=== PATIENT | female | born 1945 | race Caucasian/White ===

== ENCOUNTER 2017-11-05 14:47 | Inpatient (IN) | payer OTHER, MEDICARE ==
[~2017-11-05] VITALS: Ht 142.2 cm; Wt 59.4 kg
[2017-11-05 15:30] VITALS: BP 128/66
--- NOTE | 2017-11-05 15:30 | NUR ---
RT PT CAME FOR J TUBE REPLACEMENT, TRACH'D SHILEY 4 INTACT. ORDERED SETTINGS AC 10 600 +5 40% JERICHO VENT SETTINGS PLUGGED IN RED OUTLET AMBU BAG ON BEDSIDE, PT SEEMS COMFORTABLE, WILL CONTINUE TO MONITOR
--- NOTE | 2017-11-05 15:30 | NUR ---
PT MILLY FROM [facility] FOR JTUBE MALFUNCTION. AT BS FOR EVAL. UNABLE TO FLUSH, NO RESIDUAL NOTED FROMN JTUBE. PT ON VENT/TRACH RT AT BS. VSS. SAFETY AND COMFORT MEASURES PROVIDED. WILL MONITOR.
--- NOTE | 2017-11-05 17:32 | NUR ---
CALLED [facility] FOR PANEL
--- NOTE | 2017-11-05 18:00 | NUR ---
CALLED NURSE SUP FOR TELE BED
[2017-11-05] MEDS ORDERED: Z GUARD REMEDY 2 OZ OINT TP PRN (18:30)
[2017-11-05] MEDS ORDERED: HYDROCODONE/APAP 5/325MG 1 EACH TABLET PO PRN (18:30)
[2017-11-05] MEDS ORDERED: MAG HYDROX/AL HYDROX/SIMETH 30 ML UDC PO PRN (18:30)
[2017-11-05] MEDS ORDERED: ACETAMINOPHEN 325 MG TABLET PO PRN (18:30)
[2017-11-05] MEDS ORDERED: MAGNESIUM HYDROXIDE 30 ML UDC PO PRN (18:30)
--- NOTE | 2017-11-05 18:30 | NUR ---
IV ACCESS STARTED. BLOOD DRAWN FOR LABS.
[2017-11-05] MEDS ORDERED: DILT30TA35 JT (18:31)
[2017-11-05] MEDS ORDERED: PANT40SU2 (18:31)
[2017-11-05] MEDS ORDERED: FERR220S2 JT (18:31)
[2017-11-05] MEDS ORDERED: POTA20PA4 JT (18:31)
[2017-11-05] MEDS ORDERED: FURO-145 JT (18:31)
[2017-11-05 18:39] LABS: BASOPHILS # (AUTO) 0.2 /CMM (0.0-0.2); BASOPHILS % (AUTO) 3.1 % (0.0-2.0); EOSINOPHILS # (AUTO) 0.3 /CMM (0.0-0.7); EOSINOPHILS % (AUTO) 3.8 % (0.0-6.0); HEMATOCRIT 23 % (33-45); HEMOGLOBIN 7.6 g/dL (11.5-14.8); LYMPHOCYTES # (AUTO) 1.2 /CMM (0.8-4.8); LYMPHOCYTES % (AUTO) 16.2 % (20.0-44.0); MEAN CORPUSCULAR HEMOGLOBIN 28 PG (26.0-33.0); MEAN CORPUSCULAR HGB CONC 33 g/dl (31.0-36.0); MEAN CORPUSCULAR VOLUME 86 fL (82-100); MONOCYTES # (AUTO) 0.4 /CMM (0.1-1.30); MONOCYTES % (AUTO) 5.1 % (2.0-12.0); NEUTROPHILS # (AUTO) 5.5 /CMM (1.8-8.9); NEUTROPHILS % (AUTO) 71.8 % (43.0-81.0); PLATELET COUNT (AUTO) 321 /CMM (150-450); RDW COEFFICIENT OF VARIATION 19.7 (11.5-15.0); RED BLOOD CELL COUNT(AUTO) 2.69 MIL/uL (4.0-5.2); WHITE BLOOD COUNT (AUTO) 7.6 K/uL (4.3-11.0)
[2017-11-05 18:47] LABS: CALCIUM, SERUM 8.7 mg/dL (8.5-10.1); CARBON DIOXIDE 26 mmol/L (21-32); CHLORIDE 103 mmol/L (98-107); CREATININE 0.4 mg/dL (0.6-1.3); GLUCOSE 91 mg/dL (74-106); MAGNESIUM 2.1 mg/dL (1.8-2.4); SODIUM SERUM 136 mmol/L (136-145); UREA NITROGEN, BLOOD 23 mg/dL (7-18)
[2017-11-05] MEDS ORDERED: AMIN887L JT (18:53)
[2017-11-05] MEDS ORDERED: ZINC220C6 JT (18:53)
[2017-11-05] MEDS ORDERED: DEXT15DR6 EACHEYE (18:53)
[2017-11-05] MEDS ORDERED: INSU100V28 SQ (18:53)
[2017-11-05] MEDS ORDERED: BLOO-668 SQ (18:53)
[2017-11-05] MEDS ORDERED: ACET325T53 JT ×2 (18:53)
[2017-11-05] MEDS ORDERED: AMIO200T2 JT (18:53)
[2017-11-05] MEDS ORDERED: HEPA50007 SQ (18:53)
[2017-11-05] MEDS ORDERED: ASCO500T9 JT (18:53)
[2017-11-05] MEDS ORDERED: DOCU50LI JT (18:53)
[2017-11-05] MEDS ORDERED: MULT-213 JT (18:53)
[2017-11-05] MEDS ORDERED: CRAN3875 JT (18:53)
[2017-11-05] MEDS ORDERED: ACET-73 JT (18:53)
--- NOTE | 2017-11-05 20:30 | NUR ---
RT RECEIVED PT TRACHED WITH NOTED VENT SETTINGS, CANTEEN MANAGER DONE AND TRACH IS SECURE. SX WITH MOD THK WHITE/CLEAR SECRETIONS. VENT ALARMS CHECKED AND AUDIBLE. VENT PLUGGED IN RED OUTLET. AMBU BAG NOTED HOB. NO RESP DISTRESS NOTED AT THIS TIME, WILL CONTINUE TO MONITOR T/O SHIFT
--- NOTE | 2017-11-05 20:38 | NUR ---
REPORT GIVEN TO GERMAN HUGHES FOR TELE 104
[2017-11-05 21:00] VITALS: BP 118/66
--- NOTE | 2017-11-05 21:50 | NUR ---
received patient from ER , patient is vent dependent, family by the patient's side. VSS, afebrile, no distress noted 100% on mechanical ventilator.
--- NOTE | 2017-11-05 22:00 | NUR ---
education given to family, questions answered. continue to monitor
[2017-11-05] MEDS: IV D5/0.45 NACL 1,000 ML IV PRN (22:10)
[2017-11-05] MEDS: ENOXAPARIN SODIUM 40 MG/0.4 ML DISP.SYRIN SQ SCH (22:13)
[2017-11-06] VITALS: BP 118/56
[2017-11-06 04:00] VITALS: BP 119/55
[2017-11-06 06:59] LABS: BASOPHILS % (AUTO) 0.6 % (0.0-2.0); EOSINOPHILS # (AUTO) 0.3 /CMM (0.0-0.7); EOSINOPHILS % (AUTO) 5.5 % (0.0-6.0); HEMATOCRIT 23 % (33-45); HEMOGLOBIN 7.6 g/dL (11.5-14.8); LYMPHOCYTES # (AUTO) 1.2 /CMM (0.8-4.8); LYMPHOCYTES % (AUTO) 20.5 % (20.0-44.0); MEAN CORPUSCULAR HEMOGLOBIN 29 PG (26.0-33.0); MEAN CORPUSCULAR HGB CONC 34 g/dl (31.0-36.0); MEAN CORPUSCULAR VOLUME 87 fL (82-100); MONOCYTES # (AUTO) 0.4 /CMM (0.1-1.30); NEUTROPHILS # (AUTO) 3.8 /CMM (1.8-8.9); NEUTROPHILS % (AUTO) 66.4 % (43.0-81.0); PLATELET COUNT (AUTO) 448 /CMM (150-450); RDW COEFFICIENT OF VARIATION 20.5 (11.5-15.0); RED BLOOD CELL COUNT(AUTO) 2.58 MIL/uL (4.0-5.2); WHITE BLOOD COUNT (AUTO) 5.7 K/uL (4.3-11.0)
--- NOTE | 2017-11-06 07:24 | NUR ---
RN NOTES RECEIVED PT FROM [employer]BEST[employer] BRAKE LINING FINISHER HELPER, CHRONIC VENT/TRACH DEPENDENT TOLERATING VENT SETTINGS, OBTUNDED. SR ON THE TELE MEIR HR 85. R HAND 20G IV SITE INTACT WITH IVF AT 75ML/HR. FAMILY AT BEDSIDE. BED LOCKED AND IN LOWEST POSITION, CALL LIGHT WITHIN REACH, SIDE RAILS UPX3, WILL CONT TO MEIR.
[2017-11-06 07:32] LABS: CALCIUM, SERUM 8.2 mg/dL (8.5-10.1); CARBON DIOXIDE 25 mmol/L (21-32); CHLORIDE 103 mmol/L (98-107); CREATININE 0.5 mg/dL (0.6-1.3); GLUCOSE 87 mg/dL (74-106); MAGNESIUM 2.1 mg/dL (1.8-2.4); PHOSPHORUS 4.1 mg/dL (2.5-4.9); POTASSIUM 3.7 mmol/L (3.5-5.1); SODIUM SERUM 139 mmol/L (136-145); UREA NITROGEN, BLOOD 22 mg/dL (7-18)
[2017-11-06 08:00] VITALS: BP 124/63
--- NOTE | 2017-11-06 09:00 | NUR ---
pt received trached on [facility]. vent. settings as ordered. zero distress noted. vitals stable. b/s equal. small white sputum. alarms set and audible ambubag at head of bed. vent plugged into red outlet. Addendum: 11/06/17 at 1644 by KRAIG SOLORZANO RT Amended: Links added.
[2017-11-06 12:00] VITALS: BP 145/76
[2017-11-06] MEDS ORDERED: DEXTROSE 50%-WATER 50 ML DISP.SYRIN IV PRN (12:00)
[2017-11-06] MEDS ORDERED: CT SWABBABLE VALVE TRANS SET 1 EA INFUS.SET MC ONE (13:39)
[2017-11-06] MEDS ORDERED: IOHEXOL-300 100 ML VIAL IV ONE (13:39)
[2017-11-06] MEDS ORDERED: IV NS 0.9% 500 ML IV ONE (13:39)
[2017-11-06 14:28] LABS: ALBUMIN 2.3 g/dL (3.4-5.0); BILIRUBIN,DIRECT 0.1 mg/dL (0.0-0.2); BILIRUBIN,TOTAL 0.3 mg/dL (0.2-1.0); TOTAL PROTEIN, SERUM 6.1 g/dL (6.4-8.2)
[2017-11-06] MEDS: BLOOD SUGAR DIAGNOSTIC 1 EACH STRIP IN SCH ×3 (14:52→21:00)
[2017-11-06] MEDS: PANTOPRAZOLE 40 MG VIAL IV SCH (14:52)
[2017-11-06 16:00] VITALS: BP_SYST 137; BP_SYST 145; BP_DIAS 70; BP_DIAS 76
[2017-11-06 18:19] LABS: APPEARANCE,URINE CLEAR (CLEAR); BILIRUBIN,URINE NEGATIVE (NEGATIVE); BLOOD, URINE NEGATIVE Ery/uL (NEGATIVE); COLOR,URINE YELLOW (YELLOW); KETONES,URINE NEGATIVE (NEGATIVE); LEUKOCYTE ESTERASE ,URINE NEGATIVE (NEGATIVE); NITRITE, URINE NEGATIVE (NEGATIVE); PH,URINE 8.5 (5.0-8.0); PROTEIN,URINE TRACE mg/dl (NEGATIVE); UGLUCOSE NEGATIVE (NEGATIVE); UROBILINOGEN,URINE 0.2 EU/dL (0.2)
--- NOTE | 2017-11-06 18:46 | NUR ---
RN NOTES PT REMAINED IN STABLE CONDITION THROUGHOUT THE SHIFT, NO SIGNIFICANT CHANGES NOTED, PT REMAINS NPO. STOOL AND URINE CULTURE SENT TO LAB. ALL NEEDS MET. WILL ENDORSE TO ONCOMING SHIFT.
[2017-11-06 20:00] VITALS: BP 151/85
--- NOTE | 2017-11-06 20:00 | NUR ---
RN INITIAL NOTES RECEIVED PT IN STABLE CONDITION, PT NPO. FAMILY AT BED SIDE. BED IN LOW LOCKED POSITION, CALL LIGHT WITH IN REACH. I WILL CONTINUE TO MONITOR.
[2017-11-06] MEDS: ENOXAPARIN SODIUM 40 MG/0.4 ML DISP.SYRIN SQ SCH (20:54)
[2017-11-07] VITALS: BP 135/63
[2017-11-07 04:00] VITALS: BP_SYST 132; BP_SYST 135; BP_DIAS 60; BP_DIAS 65
--- NOTE | 2017-11-07 05:54 | NUR ---
RT Pt trach remains on [facility] vent ordered settings. no resp distress. Addendum: 11/07/17 at 0555 by JULIO CESAR SANCHEZ RT Amended: Links added.
--- NOTE | 2017-11-07 06:07 | NUR ---
RN CLOSING NOTES PT IN STABLE CONDITION OVER THE SHIFT. PT STILL NPO. IV IN L HAND WITH FLUIDS INFUSING. BED IN LOW LOCKED POSITION, CALL LIGHT WITHIN REACH. I WILL ENDORSE TO AM RN.
[2017-11-07 06:50] LABS: BASOPHILS % (AUTO) 0.7 % (0.0-2.0); EOSINOPHILS # (AUTO) 0.2 /CMM (0.0-0.7); EOSINOPHILS % (AUTO) 3.9 % (0.0-6.0); HEMATOCRIT 23 % (33-45); HEMOGLOBIN 7.8 g/dL (11.5-14.8); LYMPHOCYTES # (AUTO) 1.4 /CMM (0.8-4.8); LYMPHOCYTES % (AUTO) 25.2 % (20.0-44.0); MEAN CORPUSCULAR HEMOGLOBIN 29 PG (26.0-33.0); MEAN CORPUSCULAR HGB CONC 34 g/dl (31.0-36.0); MEAN CORPUSCULAR VOLUME 86 fL (82-100); MONOCYTES # (AUTO) 0.4 /CMM (0.1-1.30); NEUTROPHILS # (AUTO) 3.3 /CMM (1.8-8.9); NEUTROPHILS % (AUTO) 62.2 % (43.0-81.0); PLATELET COUNT (AUTO) 474 /CMM (150-450); RDW COEFFICIENT OF VARIATION 19.6 (11.5-15.0); RED BLOOD CELL COUNT(AUTO) 2.66 MIL/uL (4.0-5.2); WHITE BLOOD COUNT (AUTO) 5.4 K/uL (4.3-11.0)
[2017-11-07 07:06] LABS: CALCIUM, SERUM 8.6 mg/dL (8.5-10.1); CARBON DIOXIDE 24 mmol/L (21-32); CHLORIDE 103 mmol/L (98-107); CREATININE 0.5 mg/dL (0.6-1.3); GLUCOSE 85 mg/dL (74-106); MAGNESIUM 2.1 mg/dL (1.8-2.4); PHOSPHORUS 3.9 mg/dL (2.5-4.9); POTASSIUM 3.8 mmol/L (3.5-5.1); SODIUM SERUM 139 mmol/L (136-145); UREA NITROGEN, BLOOD 18 mg/dL (7-18)
--- NOTE | 2017-11-07 07:21 | NUR ---
REFERENCE LIBRARIAN NOTES RECEIVED PT ON BED OBTUNDED. ON [facility] VENT SETTING SATURATING 100%. PT IS OBTUNDED. IV ACCESS ON LEFT HAND D51/2 NS RUNNING AT 75CC/HR. HEAD OF BED ELEVATED. SIDE RAILS UP. CALL LIGHT WITHIN REACH. WILL CONTINUE TO MONITOR PT CLOSELY.
[2017-11-07] MEDS: BLOOD SUGAR DIAGNOSTIC 1 EACH STRIP IN SCH ×4 (07:52→21:23)
[2017-11-07 08:00] VITALS: BP 144/71
[2017-11-07] MEDS: PANTOPRAZOLE 40 MG VIAL IV SCH (08:31)
[2017-11-07] MEDS: IV D5/0.45 NACL 1,000 ML IV PRN (09:09)
[2017-11-07 12:00] VITALS: BP_SYST 145; BP_DIAS 50; BP_DIAS 70
[2017-11-07] MEDS ORDERED: diphenhydrAMINE HCL 25 MG in IV D5W 50 ML IV PRN (12:30)
[2017-11-07] MEDS ORDERED: diphenhydrAMINE HCL 50 MG/ML VIAL IV PRN (13:00)
[2017-11-07] MEDS: VANCOMYCIN 1.25 GM in IV D5W 500 ML IV SCH (13:11)
[2017-11-07] MEDS ORDERED: FEE PK DOSING 1 MIN EA MC ONE (13:15)
[2017-11-07] MEDS: MEROPENEM 1 G in IV NS 0.9% 100 ML IV SCH (15:59)
[2017-11-07 16:00] VITALS: BP 132/65
--- NOTE | 2017-11-07 19:29 | NUR ---
LUMBER PRESS OPERATOR NOTES NO ACUTE CHANGES NOTED DURING THE SHIFT. DUE MEDS GIVEN. PROVIDED COMFORT AND SAFETY. ENDORSED TO THE PM NURSE FOR CHACHO.
--- NOTE | 2017-11-07 19:37 | NUR ---
PT RCVD ON VENT WITH NOTED SETTINGS. VENTS PLUGGED INTO RED OUTLET, VENT ALARM WORKING AND AUDIBLE. SUCTIONED MODERATE AMOUNT OF PALE YELLOW THICK SECRETIONS. BILATERAL BS NOTED, NO RESPIRATORY DISTRESS NOTED AT THIS TIME. WILL CONTINUE TO MONITOR THE PT.
[2017-11-07 20:00] VITALS: BP 144/65
--- NOTE | 2017-11-07 20:00 | NUR ---
RN INITIAL NOTES RECEIVED PT RESTING IN BED. FAMILY AT BED SIDE, PT NPO. IV IN L HAND WITH FLUIDS INFUSING. BED IN LOW LOCKED POSITION, CALL LIGHT WITHIN REACH. I WILL ENDORSE TO AM RN.
[2017-11-07] MEDS: ENOXAPARIN SODIUM 40 MG/0.4 ML DISP.SYRIN SQ SCH (21:06)
[2017-11-08] VITALS: BP 161/77
[2017-11-08] MEDS: MEROPENEM 1 G in IV NS 0.9% 100 ML IV SCH ×2 (01:34→14:37)
[2017-11-08 04:00] VITALS: BP 142/60
[2017-11-08] MEDS: IV D5/0.45 NACL 1,000 ML IV PRN ×2 (04:52→20:58)
--- NOTE | 2017-11-08 07:30 | NUR ---
RN NOTES RECEIVED PATIENT ON [facility] VENT WITH BREATHING NORMAL, EVEN AND UNLABORED. NO SOB NOTED. NO ACUTE DISTRESS NOTED. VENT SETTING REVIEWED AND VERIFIED, TOLERATED WELL. TELE MONITOR REVEALS SR, HR=88. IV L HAND IS PATENT AND INTACT, NO INFILTRATION NOTED. BOWEL SOUND PRESENT. PULSES PRESENT. KEPT CLEAN, DRY AND COMFORTABLE. ALL NEEDS ATTENDED. SAFETY MEASURE OBSERVED. CALL LIGHT WITH IN REACH. WILL CONT TO MONITOR.
[2017-11-08 08:00] VITALS: BP 150/74
[2017-11-08] MEDS: BLOOD SUGAR DIAGNOSTIC 1 EACH STRIP IN SCH ×4 (08:30→21:11)
[2017-11-08] MEDS: PANTOPRAZOLE 40 MG VIAL IV SCH (08:37)
[2017-11-08 12:00] VITALS: BP 132/69
[2017-11-08 12:09] LABS: CALCIUM, SERUM 8.3 mg/dL (8.5-10.1); CARBON DIOXIDE 24 mmol/L (21-32); CHLORIDE 104 mmol/L (98-107); CREATININE 0.5 mg/dL (0.6-1.3); GLUCOSE 95 mg/dL (74-106); POTASSIUM 3.5 mmol/L (3.5-5.1); SODIUM SERUM 138 mmol/L (136-145); UREA NITROGEN, BLOOD 12 mg/dL (7-18)
[2017-11-08] MEDS: VANCOMYCIN 1.25 GM in IV D5W 500 ML IV SCH (12:27)
[2017-11-08 16:00] VITALS: BP 120/64
--- NOTE | 2017-11-08 17:08 | NUR ---
RECEIVED PT TRACH ON MECHANICAL VENTILATOR ON SETTINGS PER MD ORDER. PT HAS NO SOB/RESP DISTRESS. AIRWAY PATENT AND SECURE. VENT ALARMS SET. PT BREATH SOUNDS BILATERAL COARSE. SUCTIONED YELLOW THICK MODERATED AMOUNT OF SECRETIONS. WILL CONTINUE TO MONITOR PT.
--- NOTE | 2017-11-08 18:54 | NUR ---
RN NOTES PATIENT ENDORSED TO NEXT SHIFT IN STABLE CONDITION WITH BREATHING NORMAL, EVEN AND UNLABORED. NO SOB NOTED. NO ACUTE DISTRESS NOTED. KEPT CLEAN, DRY AND COMFORTABLE. ALL NEEDS ATTENDED. SAFETY MEASURE OBSERVED. CALL LIGHT WITH IN REACH. WILL CONT TO MONITOR.
[2017-11-08 20:00] VITALS: BP 137/75
--- NOTE | 2017-11-08 20:00 | NUR ---
RN INITIAL NOTES RECEIVED PATIENT ON [facility] VENT WITH BREATHING NORMAL, EVEN AND UNLABORED. NO SOB NOTED. NO ACUTE DISTRESS NOTED. VENT SETTING REVIEWED AND VERIFIED, TOLERATED WELL. TELE MONITOR REVEALS SR, HR=88. IV L HAND IS PATENT AND INTACT, NO INFILTRATION NOTED. BOWEL SOUND PRESENT. PULSES PRESENT. KEPT CLEAN, DRY AND COMFORTABLE. ALL NEEDS ATTENDED. SAFETY MEASURE OBSERVED. CALL LIGHT WITH IN REACH. FAMILY AT BED SIDE. WILL CONT TO MONITOR.
--- NOTE | 2017-11-08 20:29 | NUR ---
PT RECEIVED TRACHED SHLY 4 ON VENTF. NO RESP DISTRESS NOTED. PT TOLERATING VENT SETTINGS. SX'D FOR SML AMT OF THICK PALE SECRETIONS. VENT ALARMS SET AND AUDIBLE. AMBU BAG AT BEDSIDE. VENT PLUGGED INTO RED OUTLET. WILL CONTINUE TO MONITOR. Addendum: 11/08/17 at 2030 by CANELO RAPP RT Amended: Links added.
[2017-11-08] MEDS: ENOXAPARIN SODIUM 40 MG/0.4 ML DISP.SYRIN SQ SCH (20:58)
[2017-11-08] MEDS: MORPHINE SULFATE INJ 2 MG/ML DISP.SYRIN IV PRN (22:27)
[2017-11-09] VITALS: BP 119/58
[2017-11-09] MEDS: MEROPENEM 1 G in IV NS 0.9% 100 ML IV SCH ×2 (01:05→13:46)
[2017-11-09 04:00] VITALS: BP 135/65
--- NOTE | 2017-11-09 06:11 | NUR ---
RN CLOSING NOTES PT IN STABLE CONDITION OVER THE SHIFT. PT STILL NPO. NEW IV WAS STARTED IN R HAND WITH FLUIDS INFUSING. BED IN LOW LOCKED POSITION, CALL LIGHT WITHIN REACH. I WILL ENDORSE TO AM RN.
[2017-11-09 06:13] LABS: BASOPHILS % (AUTO) 0.7 % (0.0-2.0); EOSINOPHILS # (AUTO) 0.2 /CMM (0.0-0.7); EOSINOPHILS % (AUTO) 3.2 % (0.0-6.0); HEMATOCRIT 24 % (33-45); HEMOGLOBIN 7.9 g/dL (11.5-14.8); LYMPHOCYTES % (AUTO) 19.1 % (20.0-44.0); MEAN CORPUSCULAR HEMOGLOBIN 29 PG (26.0-33.0); MEAN CORPUSCULAR HGB CONC 34 g/dl (31.0-36.0); MEAN CORPUSCULAR VOLUME 86 fL (82-100); MONOCYTES # (AUTO) 0.3 /CMM (0.1-1.30); NEUTROPHILS # (AUTO) 3.6 /CMM (1.8-8.9); PLATELET COUNT (AUTO) 423 /CMM (150-450); RED BLOOD CELL COUNT(AUTO) 2.73 MIL/uL (4.0-5.2); WHITE BLOOD COUNT (AUTO) 5.1 K/uL (4.3-11.0)
[2017-11-09 06:33] LABS: CALCIUM, SERUM 8.3 mg/dL (8.5-10.1); CARBON DIOXIDE 26 mmol/L (21-32); CHLORIDE 101 mmol/L (98-107); CREATININE 0.4 mg/dL (0.6-1.3); GLUCOSE 89 mg/dL (74-106); MAGNESIUM 1.7 mg/dL (1.8-2.4); PHOSPHORUS 3.3 mg/dL (2.5-4.9); SODIUM SERUM 136 mmol/L (136-145); UREA NITROGEN, BLOOD 8 mg/dL (7-18)
--- NOTE | 2017-11-09 07:00 | NUR ---
STATE PILOT OPENING NOTES. PT RECEIVED A&0X1, EYES OPEN KHMER SPEAKING AND ABLE TO INDICATE YES AND NO. PT VENT AND TRACH DEPENDENT. SETTINGS REVIEWED WITH NIGHT NURSE AND CORRECT. PT TELE: SR 62. PT NPO. PT INDICATING NO PAIN AT THIS TIME AND IS WITHOUT S/S OR DISTRESS OR DISCOMFORT. PT WITH IVC AT L HAND IS INTACT AND OPERATIONAL BUT GENERALIZED EDEMA NOTED, ENDORSED HARD STICK AND GOOD CANDIDATE FOR MIDLINE PLACEMENT, WILL F/UP WITH MD. PT WITH NON FUNCTIONING J TUBE, ABDO DYSHESION AND LOWER ABDO DRAIN WITH <5ML CLEAR DRAINING. BED IN MID SEMI FOWLERS AND LOWEST LOCKED POSITION WITH HANDRAILSX3. WILL CONTINUE TO MONITOR.
[2017-11-09 07:01] LABS: POTASSIUM 2.8 mmol/L (3.5-5.1)
[2017-11-09] MEDS: BLOOD SUGAR DIAGNOSTIC 1 EACH STRIP IN SCH ×4 (07:39→22:24)
[2017-11-09 08:00] VITALS: BP 139/62
[2017-11-09] MEDS: PANTOPRAZOLE 40 MG VIAL IV SCH (09:06)
[2017-11-09] MEDS: MORPHINE SULFATE INJ 2 MG/ML DISP.SYRIN IV PRN (10:51)
[2017-11-09] MEDS ORDERED: POTASSIUM CL. PREMIX PERIPHER. 50 ML IV SCH (11:00)
[2017-11-09 12:00] VITALS: BP 133/60
--- NOTE | 2017-11-09 12:00 | NUR ---
TEL RN, attempted flushed with cranberry juice 5ml in to JT but unable to flushed at present time ordered q 4hrs was notified < was ordered q4hrs >
[2017-11-09] MEDS: Magnesium 1GM/D5W 100ML PREMIX 100 ML IV SCH ×2 (12:13→17:37)
[2017-11-09] MEDS: Potassium Chloride 40 MEQ in IV D5W 1,000 ML IV PRN (12:23)
[2017-11-09 12:40] LABS: CALCIUM, SERUM 8.2 mg/dL (8.5-10.1); CARBON DIOXIDE 25 mmol/L (21-32); CHLORIDE 101 mmol/L (98-107); CREATININE 0.5 mg/dL (0.6-1.3); GLUCOSE 96 mg/dL (74-106); SODIUM SERUM 137 mmol/L (136-145); UREA NITROGEN, BLOOD 7 mg/dL (7-18)
[2017-11-09 12:42] LABS: POTASSIUM 2.7 mmol/L (3.5-5.1)
[2017-11-09] MEDS: POTASSIUM CL. PREMIX PERIPHER. 50 ML IV SCH ×6 (14:25→23:29)
[2017-11-09] MEDS: VANCOMYCIN 1.25 GM in IV D5W 500 ML IV SCH (15:22)
[2017-11-09 16:00] VITALS: BP 137/66
--- NOTE | 2017-11-09 17:00 | NUR ---
TELRN NOTES - PT WITH G#18 R UA MIDLINE PLACED, MIDLINE INTACT AND OPERATIONAL.
--- NOTE | 2017-11-09 18:45 | NUR ---
TELERN NOTES. PT REMAINS A&0X1, EYES OPEN UKRAINIAN AND ABLE TO INDICATE YES AND NO. PT VENT AND TRACH DEPENDENT ALL SETTINGS CORRECT. PT TELE: SR 78. PT NPO. PT WITH IVC AT R HAND INTACT AND OPERATIONAL AND R UA MIDLINE G#18, PLACED TODAY, INTACT AND OPERATIONAL. PT WITH NON FUNCTIONING J TUBE, ABDO DYSHESION AND LOWER ABDO DRAIN WITH <5ML CLEAR DRAINAGE. BED IN MID SEMI FOWLERS AND LOWEST LOCKED POSITION WITH HANDRAILSX3. PT AND FAMILY WITHOUT CONCERN OR COMPLAINT AT THIS TIME. WILL ENDORSE TO NIGHT NURSE.
[2017-11-09 20:00] VITALS: BP 145/73
[2017-11-09] MEDS: ENOXAPARIN SODIUM 40 MG/0.4 ML DISP.SYRIN SQ SCH (20:56)
[2017-11-09] MEDS: ONDANSETRON HCL/PF 4 MG/2 ML VIAL IVP PRN (21:56)
--- NOTE | 2017-11-09 22:21 | NUR ---
PT RECEIVED TRACHED SHLY 4 ON VENT. NO RESP DISTRESS NOTED. PT TOLERATING VENT SETTINGS. SX'D FOR MOD AMT OF THICK YELLOW SECRETIONS. VENT ALARMS SET AND AUDIBLE. AMBU BAG AT BEDSIDE. VENT PLUGGED INTO RED OUTLET. WILL CONTINUE TO MONITOR. Addendum: 11/09/17 at 2221 by CANELO RAPP RT Amended: Links added.
--- NOTE | 2017-11-09 23:44 | NUR ---
RN NOTES. GAVE REPORT AND PATIENT CARE TO ДМИТРИЙ RN. PATIENT IN STABLE CONDITION AT THIS TIME
[2017-11-10] VITALS: BP 135/63
--- NOTE | 2017-11-10 | NUR ---
HEEL ATTACHER WOOD NOTES RECEIVED REPORT FROM ELLEN MAYS IN STABLE CONDITION, PATIENT ALERT AND ORIENTED X1, CONFUSED. PT VENT AND TRACH DEPENDENT. PT TELE MONITOR IS IN PLACE, SR 77. PT NPO. IV ACCESS AT R HAND INTACT AND OPERATIONAL AND R UA MIDLINE G#18 INTACT AND OPERATIONAL. PT WITH NON FUNCTIONING J TUBE. BED IN LOW AND LOCKED POSITION, SIDE RAILSX3. CALL LIGHT WITHIN EASY REACH. WILL CONTINUE TO MONITOR.
[2017-11-10] MEDS: MEROPENEM 1 G in IV NS 0.9% 100 ML IV SCH ×2 (01:29→14:41)
[2017-11-10 04:00] VITALS: BP 140/74
[2017-11-10 06:41] LABS: BASOPHILS % (AUTO) 0.8 % (0.0-2.0); EOSINOPHILS # (AUTO) 0.1 /CMM (0.0-0.7); EOSINOPHILS % (AUTO) 2.9 % (0.0-6.0); HEMATOCRIT 25 % (33-45); HEMOGLOBIN 8.4 g/dL (11.5-14.8); LYMPHOCYTES # (AUTO) 1.3 /CMM (0.8-4.8); LYMPHOCYTES % (AUTO) 26.3 % (20.0-44.0); MEAN CORPUSCULAR HEMOGLOBIN 28 PG (26.0-33.0); MEAN CORPUSCULAR HGB CONC 33 g/dl (31.0-36.0); MEAN CORPUSCULAR VOLUME 86 fL (82-100); MONOCYTES # (AUTO) 0.3 /CMM (0.1-1.30); MONOCYTES % (AUTO) 5.3 % (2.0-12.0); NEUTROPHILS # (AUTO) 3.3 /CMM (1.8-8.9); NEUTROPHILS % (AUTO) 64.7 % (43.0-81.0); PLATELET COUNT (AUTO) 446 /CMM (150-450); RDW COEFFICIENT OF VARIATION 18.2 (11.5-15.0); RED BLOOD CELL COUNT(AUTO) 2.97 MIL/uL (4.0-5.2); WHITE BLOOD COUNT (AUTO) 5.1 K/uL (4.3-11.0)
[2017-11-10 06:56] LABS: CALCIUM, SERUM 8.3 mg/dL (8.5-10.1); CARBON DIOXIDE 25 mmol/L (21-32); CHLORIDE 101 mmol/L (98-107); CREATININE 0.5 mg/dL (0.6-1.3); GLUCOSE 91 mg/dL (74-106); PHOSPHORUS 2.8 mg/dL (2.5-4.9); SODIUM SERUM 136 mmol/L (136-145); UREA NITROGEN, BLOOD 5 mg/dL (7-18)
--- NOTE | 2017-11-10 07:30 | NUR ---
RN CLOSING NOTES PATIENT IS IN BED, ALERT AND ORIENTED X1, CONFUSED. PT VENT AND TRACH DEPENDENT. PT TELE MONITOR IS IN PLACE, SR 78. PT NPO. IV ACCESS AT R HAND INTACT AND OPERATIONAL AND R UA MIDLINE G#18 INTACT AND OPERATIONAL. PT WITH NON FUNCTIONING J TUBE. ALL NEEDS ARE MET, PATIENT SUCTIONED AND REPOSITIONED. ALL MEDICATIONS GIVEN PER MD ORDER. IN LOW AND LOCKED POSITION, SIDE RAILSX3. CALL LIGHT WITHIN EASY REACH. WILL ENDORSE TO RN DAY SHIFT FOR CHACHO.
--- NOTE | 2017-11-10 07:30 | NUR ---
RECEIVED PT IN BED, ASLEEP EASILY AROUSABLE. NO DISTRESS NOTED. TRACHE IN PLACE WITH SETTINGS AC 10, TV 600 FIO2 40% PEEP 5. SR ON TELE. ABDOMEN WITH DRAINS, ON LLQ AND JT ON LUQ. INCONTINENT. BED LOW AND LOCKED. CALL LIGHT WITHIN REACHED. WILL CONT TO MONITOR.
[2017-11-10 08:00] VITALS: BP 140/64
[2017-11-10] MEDS: BLOOD SUGAR DIAGNOSTIC 1 EACH STRIP IN SCH ×4 (08:11→21:13)
[2017-11-10] MEDS: INSULIN REGULAR, HUMAN 100 UNIT/ML 3 ML VIAL SQ PRN ×3 (08:12→17:55)
[2017-11-10] MEDS: PANTOPRAZOLE 40 MG VIAL IV SCH (08:15)
[2017-11-10] MEDS: Potassium Chloride 40 MEQ in IV D5W 1,000 ML IV PRN (08:17)
--- NOTE | 2017-11-10 09:58 | NUR ---
WOUND CARE CONSULT: PT PRESENTS WITH OPEN SURGICAL WOUND TO MIDLINE ABDOMEN WITH SMALL AMOUNT OF PURULENT DRAINAGE, RED SCHNEIDER CATH TO J TUBE SITE WELL RT LOWER QUADRANT PIGTAIL CATH WITH DRAINAGE BAG AND ELVA DRAIN (NO DRAINAGE NOTED). DEFER TO SURGEON FOR SURGICAL SITES. SACRAL SCARRING NOTED. ALL ABOVE PRESENT ON ADMISSION. PT ALSO NOTED TO HAVE 4+ PITTING EDEMA TO LOWER EXTREMITIES. ALL SKIN PROTECTION MEASURES IN PLACE AND DISCUSSED WITH NURSING STAFF. FIRST STEP MATTRESS ORDERED. CURRENT REYNALDO SCORE IS 9. WILL SEE PRN. ROSADO IN AGREEMENT WITH PLAN OF CARE. Addendum: 11/10/17 at 1001 by CRISTEL FIELDS WNDNU Amended: Links added.
--- NOTE | 2017-11-10 10:00 | NUR ---
INSTILLED CRANBERRY JUICE ON JT.
[2017-11-10 12:00] VITALS: BP 144/66
[2017-11-10] MEDS: VANCOMYCIN 1.25 GM in IV D5W 500 ML IV SCH (12:21)
[2017-11-10 16:00] VITALS: BP 144/64
--- NOTE | 2017-11-10 18:16 | NUR ---
RT END OF THE SHIFT REPORT PT. 72 Y OLD FEMALE REMAIN TRACH'D SHILEY # 4 AND ON VENT WITH NOTED SETTINGS, ALARMS ARE SET AND FUNCTIONAL. NO DISTRESS NOTED T/O SHIFT. B/S BILATERALLY RHONCHI. EQUAL CHEST RISE NOTED. SUX'D FOR MINIMUM AMT. YELLOWISH SECRETIONS, NO CHANGES AND CONTINUE FOR MONITOR AND CARE FOR PT. AMBU BAG REMAIN AT THE BEDSIDE. VENT PLUGGED INTO RED OUTLET. HME CHANGED, REPORT WILL PASS TO PM SHIFT. Addendum: 11/10/17 at 1818 by ALICIA MCMILLAN RT Amended: Links added.
--- NOTE | 2017-11-10 18:34 | NUR ---
NO ACUTE RESP DISTRESS NOTED. INSTILLED 5 ML CRANBERRY JUICE ON JT AND APPLIED CLAMP, DONE 3X TODAY. INCONTINENCE CARE DONE. CHANGED BED TO 1ST STEP LOW AIRLOSS MATTRESS. TURNED AND REPOSITIONED Q2H AND FLOAT HEELS. APPLIED MEPILEX ON HEALED ULCER ON BUTTOCKS. REMAINED NPO. INFORMED FAMILY OF PLAN TO TRANSFER PT TO [facility] PER ALEXEY TSE. NOTIFIED TEXTURING MACHINE FIXER, JACEK. VENTILATOR SETTINGS REMAINED THE SAME. WILL CONTINUE TO MONITOR.
[2017-11-10] MEDS: ONDANSETRON HCL/PF 4 MG/2 ML VIAL IVP PRN (19:01)
--- NOTE | 2017-11-10 19:35 | NUR ---
SMOKEHOUSE OPERATOR INITIAL NOTES RECEIVED PT IN BED AWAKE WITH FAMILY AT BEDSIDE. NO SIGNS AND SYMPTOMS OR DISTRESS OR SOB. BREATHING EVENLY AND UNLABORED ON VENT. IV ACCESS IS INTACT AND PATENT INFUSING WITH D5. DRAINS ON ABDOMEN NOTED. BED IS IN LOW AND LOCKED POSITION, CALL LIGHT WITHIN REACH. WILL CONTINUE TO MONITOR PT.
[2017-11-10 20:00] VITALS: BP 147/69
[2017-11-10] MEDS: ENOXAPARIN SODIUM 40 MG/0.4 ML DISP.SYRIN SQ SCH (21:13)
[2017-11-11] VITALS (8 sets, daily range): BP systolic 130–159; BP diastolic 69–87
[2017-11-11] MEDS: Potassium Chloride 40 MEQ in IV D5W 1,000 ML IV PRN ×2 (01:18→14:47)
[2017-11-11] MEDS: MEROPENEM 1 G in IV NS 0.9% 100 ML IV SCH ×2 (01:18→14:32)
--- NOTE | 2017-11-11 05:30 | NUR ---
PTS SUPRAPUBIC CATH FOUND DISLODGED. CONTACTED [facility], DR ZAVALA ORDERED UROLOGY CONSULT FOR REINSERTION AND MITTENS FOR SAFETY. WILL CARRY OUT ORDERS
--- NOTE | 2017-11-11 05:49 | NUR ---
PT AWAKE ALERT AND RECEIVED PT ON VENT WITH NOTED SETTINGS, ALARMS ARE SET AND FUNCTIONAL. NO DISTRESS NOTED T/O SHIFT. B/S BILATERALLY RHONCHI. EQUAL CHEST RISE NOTED. AMBU BAG REMAIN AT THE BEDSIDE. VENT PLUGGED INTO RED OUTLET.
[2017-11-11] MEDS: BLOOD SUGAR DIAGNOSTIC 1 EACH STRIP IN SCH ×4 (05:53→21:37)
--- NOTE | 2017-11-11 06:39 | NUR ---
BOTTOM SCRUBBER CLOSING NOTES PT IS IN BED AWAKE AND ALERT. NO SIGNS OF SOB OR DISTRESS ON MECHANICAL VENT, TOLERATING WELL. IV ACCESS IS INTACT AND PATENT. PT TO BE TRANSFERRED TO [facility]. BED IS IN LOW AND LOCKED POSITION. WILL ENDORSE TO DAYSHIFT
[2017-11-11 06:50] LABS: BASOPHILS % (AUTO) 0.5 % (0.0-2.0); EOSINOPHILS # (AUTO) 0.2 /CMM (0.0-0.7); EOSINOPHILS % (AUTO) 2.9 % (0.0-6.0); HEMATOCRIT 24 % (33-45); HEMOGLOBIN 8.1 g/dL (11.5-14.8); LYMPHOCYTES # (AUTO) 1.1 /CMM (0.8-4.8); LYMPHOCYTES % (AUTO) 21.8 % (20.0-44.0); MEAN CORPUSCULAR HEMOGLOBIN 29 PG (26.0-33.0); MEAN CORPUSCULAR HGB CONC 34 g/dl (31.0-36.0); MEAN CORPUSCULAR VOLUME 86 fL (82-100); MONOCYTES # (AUTO) 0.3 /CMM (0.1-1.30); MONOCYTES % (AUTO) 6.2 % (2.0-12.0); NEUTROPHILS # (AUTO) 3.6 /CMM (1.8-8.9); NEUTROPHILS % (AUTO) 68.6 % (43.0-81.0); PLATELET COUNT (AUTO) 407 /CMM (150-450); RDW COEFFICIENT OF VARIATION 18.3 (11.5-15.0); RED BLOOD CELL COUNT(AUTO) 2.81 MIL/uL (4.0-5.2); WHITE BLOOD COUNT (AUTO) 5.3 K/uL (4.3-11.0)
[2017-11-11 07:19] LABS: CALCIUM, SERUM 8.4 mg/dL (8.5-10.1); CARBON DIOXIDE 24 mmol/L (21-32); CHLORIDE 101 mmol/L (98-107); CREATININE 0.4 mg/dL (0.6-1.3); GLUCOSE 87 mg/dL (74-106); MAGNESIUM 1.8 mg/dL (1.8-2.4); PHOSPHORUS 2.6 mg/dL (2.5-4.9); SODIUM SERUM 136 mmol/L (136-145); UREA NITROGEN, BLOOD 4 mg/dL (7-18)
--- NOTE | 2017-11-11 08:28 | NUR ---
RECEIVED AWAKE ,NO ACUTE DISTRESS.
--- NOTE | 2017-11-11 08:30 | NUR ---
MS RN RECEIVED ON BED, AWAKE,ALERT,ORIENTED X1-2,NOT IN ANY FORM OF DISTRESS, VENT DEPENDENT PATIENT , NO DISTRESS NOTED.ALL NEEDS ATTENDED.
--- NOTE | 2017-11-11 09:30 | NUR ---
MS RN DUE MEDS GIVEN,TOLERATED WELL.
[2017-11-11] MEDS: PANTOPRAZOLE 40 MG VIAL IV SCH (09:35)
--- NOTE | 2017-11-11 10:00 | NUR ---
MS RN CONSENT FOR CT ABDOMEN W/ ABCESS, DONE BY DR. DAILY.
--- NOTE | 2017-11-11 10:47 | NUR ---
AWAITING CONSENTS FOR COMPUTED TOMOGRAPHY AND ULTRASOUND GUIDED PERCUTANEOUS DRAINAGE OF ABSCESS WITH CATHETER PLACEMENT AND MODERATE SEDATION. AWAITING COAGS, (PT, PTT, INR). NURSING NOT AVAILABLE TODAY, TO BE DONE TOMORROW (11/12/17) IN THE AM. WILL COORDINATE WITH ELLEN MCPHERSON. RADIOLOGIST AND NURSING TRAINING AND DEVELOPMENT PROFESSIONAL AWARE.
[2017-11-11 11:41] LABS: INR 1.1 (0.85-1.15)
[2017-11-11] MEDS: VANCOMYCIN 1.25 GM in IV D5W 500 ML IV SCH (14:33)
--- NOTE | 2017-11-11 15:59 | NUR ---
MS FLIGHT ENGINEER MANAGER A BEB SIDE,NO DISTRESS NOTED.
--- NOTE | 2017-11-11 17:00 | NUR ---
MS RN CALLED RADIOLOGY, THEY CAN'T DO PROCEDURE DUE TO NO RN TO DO IT AT THIS TIME, WILL DO IT IN AM, DR. BRYAN MADE AWARE, NO RESPONSE SO FAR, NO CHANGE OF CONDITION.
--- NOTE | 2017-11-11 19:50 | NUR ---
TRANSPLANT IMMUNOLOGIST NOTE RECEIVED PT IN BED WITH EYES CLOSED. AROUSABLE. ERITREAN SPEAKING. ON VENT/TRACH TOLERATING THE SETTINGS WELL. ON TELE SR 63. NOTED GRIMACE ON HER FACE, ALSO BP IS HIGH, MORPHINE 1 MG IVP GIVEN FOR PAIN. J TUBE CLAMPED, MID ABD WOUND DRESSING I/C/D WITH ELVA DRAINAGE INTACT AND PATENT SEROSANGUINEOUS FLUID NOTED. MARIA E WITH MIDLINE #18 G GETTING D5W WITH 40 MEQ KCL, NO S/S OF INFILTRATION NOTED. REPOSITION HER Q2H, KEPT HER DRY AND CLEAN. ALL NEEDS ATTENDED. CONTINUE TO MONITOR HER.
[2017-11-11] MEDS: MORPHINE SULFATE INJ 2 MG/ML DISP.SYRIN IV PRN (19:54)
--- NOTE | 2017-11-11 20:40 | NUR ---
PT RECEIVED TRACHED SHLY 4 ON VENT. NO RESP DISTRESS NOTED. PT TOLERATING VENT SETTINGS. SX'D FOR MOD AMT OF THICK YELLOW SECRETIONS. VENT ALARMS SET AND AUDIBLE. AMBU BAG AT BEDSIDE. VENT PLUGGED INTO RED OUTLET. WILL CONTINUE TO MONITOR. Addendum: 11/11/17 at 2040 by CANELO RAPP RT Amended: Links added.
[2017-11-11] MEDS: ENOXAPARIN SODIUM 40 MG/0.4 ML DISP.SYRIN SQ SCH (21:00)
--- NOTE | 2017-11-11 22:00 | NUR ---
AUTOMATIC VULCANIZING LEAD OPERATOR NOTE VERIFIED WITH HYDROGEN PLANT OPERATOR MARZENA REGARDING LOVENOX TO BE GIVEN OR NOT. PER HYDROGEN PLANT OPERATOR HOLD IT DUE TO AM PROCEDURE.
[2017-11-12] VITALS: BP 160/80
--- NOTE | 2017-11-12 | NUR ---
WORKFORCE MANAGEMENT CONSULTANT NOTE TERRANCE LEI CALLED AND INFORMED THAT BED FOR THE PT IS READY AND WILL PICK HER UP IN AM. ACADEMIC ADVISER WILL CALL IN AM TO ARRANGE THE TRANSPORTATION. WILL RELAY THIS INFO TO DAY SHIFT NURSE TO FOLLOW UP.
--- NOTE | 2017-11-12 01:00 | NUR ---
SPECIALTY FOODS COOK AMBER CARLOS FROM [facility] CALLED BACK AND INFORMED THAT CADET DECK WILL CALL [facility] TO ARRANGE THE TRANSPORTATION FOR THE PT.
[2017-11-12] MEDS: MEROPENEM 1 G in IV NS 0.9% 100 ML IV SCH (02:46)
[2017-11-12 04:00] VITALS: BP 155/67
[2017-11-12 06:18] LABS: CALCIUM, SERUM 8.9 mg/dL (8.5-10.1); CARBON DIOXIDE 24 mmol/L (21-32); CHLORIDE 101 mmol/L (98-107); CREATININE 0.5 mg/dL (0.6-1.3); GLUCOSE 94 mg/dL (74-106); SODIUM SERUM 136 mmol/L (136-145); UREA NITROGEN, BLOOD 4 mg/dL (7-18)
--- NOTE | 2017-11-12 06:30 | NUR ---
WASHER REPAIRMAN NOTE TERRANCE CALLED AGAIN AND ASKING FOR TO ARRANGE THE TRANSPORTATION FOR THE PT TO [facility]. PER TERRANCE PRODUCT SAFETY COORDINATOR MO SUPPOSE TO CALL [facility] AND TALK ABOUT THE PT'S TRANSPORTATION BUT PRODUCT SAFETY COORDINATOR NEVER CALLED BACK. CHARGE NURSE LAURA INFORMED. ONCE THE TRANSPORTATION IS SET, NEED TO CALL BACK ON [phone].
--- NOTE | 2017-11-12 06:40 | NUR ---
CERTIFIED SURGICAL TECHNICIAN NOTE PT IN BED ASLEEP, AROUSABLE. NO DISTRESS OR DISCOMFORT NOTED. DENIES PAIN. IVF INFUSING WELL, J TUBE REMAIN CLAMPED. ELVA DRAIN 5 ML OUTPUT FOR THE SHIFT. REPOSITION HER Q2H, KEPT HER DRY AND CLEAN. ALL NEEDS ATTENDED. WILL ENDORSE TO DAY SHIFT NURSE FOR CONTINUE TO CARE.
--- NOTE | 2017-11-12 07:05 | NUR ---
RN INITIAL NOTE PATIENT RECEIVED IN BED RESTING COMFORTABLY. NO S/S OF PAIN OR DISCOMFORT. PATIENT SPEAKS UPPER SORBIAN PRIMARILY. NON VERBAL HAS TRACH. OPAL #6, TOLERATING VENT SETTINGS WELL. SINUS RHYTHM ON TELE MONITOR. SKIN IS WARM AND DRY TO TOUCH. IV SITE FLUSHED, PATENT. SAFETY PRECAUTIONS IN PLACE, BED IN LOCKED, LOW POSITION WT TWO SIDE RAILS UP. CALL LIGHT WITHIN EASY REACH. WILL CONTINUE TO MONITOR.
[2017-11-12 08:00] VITALS: BP 158/73
--- NOTE | 2017-11-12 09:30 | NUR ---
RN CLOSING NOTE PATIENT DISCHARGED TO [facility]. CALLED REPORT TO CHRISTINA GOING TO ROOM 1231. PICTURES TAKEN. ID BAND REMOVED. PAPERWORK COMPLETE. LEFT VIA AMBULANCE.
--- NOTE | 2017-11-12 17:29 | NUR ---
RT NOTE PATIENT RECEIVED ON AC 40%. TRACH SECURED AND PATENT. ALARMS ON AND AUDIBLE. SUCTION DONE, SMALL AMOUNTS OF THIN WHITE SECRETIONS NOTED. Addendum: 11/12/17 at 1730 by MASHA HOPKINS RT Amended: Links added.
== END 2017-11-12 09:47 | disposition short-term general hospital (02) | DRG 130 ==
LOC: ER 14:50 → TELE1 20:31
PROVIDERS: ADMIT Internal Medicine; ATTEND Internal Medicine
PROC: 5A1955Z Respiratory Ventilation, Greater than 96 Consecutive Hours (ICD-10-PCS; principal; 2017-11-05)
PROC: 05H533Z Insertion of Infusion Device into Right Subclavian Vein, Percutaneous Approach (ICD-10-PCS; 2017-11-09)
DX: J15.0 Pneumonia due to Klebsiella pneumoniae (principal); G93.40 Encephalopathy, unspecified; E44.0 Moderate protein-calorie malnutrition; R53.2 Functional quadriplegia; K94.13 Enterostomy malfunction; J96.11 Chronic respiratory failure with hypoxia; T81.31XA Disruption of external operation (surgical) wound, not elsewhere classified, initial encounter; I48.0 Paroxysmal atrial fibrillation; Z99.11 Dependence on respirator [ventilator] status; I10 Essential (primary) hypertension; Z93.0 Tracheostomy status; K92.2 Gastrointestinal hemorrhage, unspecified; D63.8 Anemia in other chronic diseases classified elsewhere; K21.9 Gastro-esophageal reflux disease without esophagitis; I25.2 Old myocardial infarction; I25.10 Atherosclerotic heart disease of native coronary artery without angina pectoris; E11.9 Type 2 diabetes mellitus without complications; E78.5 Hyperlipidemia, unspecified; J98.11 Atelectasis; R13.10 Dysphagia, unspecified; Z86.711 Personal history of pulmonary embolism; Z88.0 Allergy status to penicillin; Z90.3 Acquired absence of stomach [part of]; Y82.9 Unspecified medical devices associated with adverse incidents; Y92.129 Unspecified place in nursing home as the place of occurrence of the external cause; Z68.29 Body mass index [BMI] 29.0-29.9, adult; Z85.028 Personal history of other malignant neoplasm of stomach; L02.211 Cutaneous abscess of abdominal wall; D50.9 Iron deficiency anemia, unspecified; Z16.12 Extended spectrum beta lactamase (ESBL) resistance; L89.92 Pressure ulcer of unspecified site, stage 2; J15.9 Unspecified bacterial pneumonia
CPT/HCPCS: 31720; 36415; 71045-TC; 74178; 80048-TC; 80076-TC; 80202-TC; 81000-TC; 82272-TC; 82962-TC; 83540-TC; 83605-TC; 83735-TC; 84100-TC; 85025-TC; 85610-TC; 85730-TC; 87040-TC; 87070-TC; 87081-TC; 87186-TC; 94002-TC; 94003-TC; 94760-TC; 94762-TC; 99082-TC; A4606; A6253; A6402; C9113; J1200; J1650; J1815; J2185; J2270; J2405; J3370; J3475; J3480; J3490; J7030; J7040; J7060; J7070; Q9967; Z7610